=== PATIENT | female | born 1960 ===

== ENCOUNTER 2019-02-11 17:43 | Outpatient (REF) | payer BC, SELFPAY ==
[2019-02-11 22:09] LABS: TSH (W/Ref FT4) 1.03 uIU/mL (0.36-3.74)
== END 2019-02-11 18:03 ==
LOC: NCHCN 17:43
PROVIDERS: PCP Family Medicine; Visit Provider Family Medicine
DX: E66.3 Overweight (principal)
CPT/HCPCS: 84443

== ENCOUNTER 2021-02-15 16:56 | Outpatient (REF) | payer BC, SELFPAY ==
--- NOTE | 2021-02-15 16:00 | PAPFT_PTH ---
PATIENT: Josseline Nixon LOC: [facility] U#:[id number] AGE/SX: 60/F ROOM: RE02/15/[address]: Gloria Saul : 1960 BED: DIS: 02/15/2021 SPEC #: [id number] RECD: 02/16/21 12:50 STATUS: PALMA REQ #: [id number] CHARISSE: 02/15/21 16:[address]: Gloria Saul DEPT: [facility] Cytology RECD BY: Maureen Li Tissues: 1 - CX/ENDOCX FOR PAP SMEARS Procedures: PAP THIN PREP/[facility] Screening HPV DNA PROBE Comments: [id number]
== END 2021-02-15 16:57 | disposition home or self-care (01) ==
LOC: NCHCN 16:56
PROVIDERS: PCP Family Medicine; Visit Provider Family Medicine
DX: Z00.00 Encounter for general adult medical examination without abnormal findings (principal); Z12.4 Encounter for screening for malignant neoplasm of cervix; Z11.51 Encounter for screening for human papillomavirus (HPV)
CPT/HCPCS: 88142; 87624

== ENCOUNTER 2022-02-16 17:06 | Outpatient (REF) | payer BC, SELFPAY ==
[2022-02-16 15:37] LABS: ALT 25 U/L (14-59); AST 29 U/L (15-37); Albumin 3.8 g/dL (3.4-5.0); Alkaline Phosphatase 50 U/L (46-116); Bilirubin, Direct 0.1 mg/dL (0.0-0.2); Bilirubin, Total 0.5 mg/dL (0.2-1.0); Calculated LDL 117 mg/dL (<100); Cholesterol 195 mg/dL (<200); HDL Cholesterol 69 mg/dL (40-60); Total Protein 7.2 g/dL (6.4-8.2); Triglyceride 46 mg/dL (<150)
== END 2022-02-16 17:07 | disposition home or self-care (01) ==
LOC: NCHCN 17:06
PROVIDERS: PCP Family Medicine; Visit Provider Family Medicine
DX: F10.10 Alcohol abuse, uncomplicated (principal); E66.3 Overweight
CPT/HCPCS: 80061; 80076

== ENCOUNTER 2022-04-30 15:26 | Outpatient (REF) | payer BC, SELFPAY ==
[2022-05-02 11:11] LABS: Lyme Ab w Rflx to Lyme Confirm Negative (Negative)
[2022-05-04 01:04] LABS: Anaplasma phagocytophilum Negative (Negative); B. miyamotoi PCR Negative (Negative); Babesia divergens/MO-1 Negative (Negative); Babesia duncani Negative (Negative); Babesia microti Negative (Negative); Ehrlichia chaffeensis Negative (Negative); Ehrlichia ewingii/canis Negative (Negative); Ehrlichia muris eauclairensis Negative (Negative)
== END 2022-04-30 15:27 | disposition home or self-care (01) ==
LOC: NCHCN 15:26
PROVIDERS: PCP Family Medicine; Visit Provider Nurse Practitioner Family
DX: R68.84 Jaw pain (principal)
CPT/HCPCS: 87798; 86618

== ENCOUNTER 2025-05-24 15:11 | Outpatient (REF) | payer BC, SELFPAY ==
[2025-05-24 21:31] LABS: Anion Gap 7 mmol/L (3-11); BUN 19 mg/dL (9-23); CO2 30.0 mmol/L (20.0-31.0); Calcium 9.2 mg/dL (8.3-10.6); Chloride 105 mmol/L (98-107); Glucose 94 mg/dL (74-106); Hemoglobin A1C 5.3 % (<5.7); Potassium 4.2 mmol/L (3.5-5.1); Sodium 142 mmol/L (136-145)
== END 2025-05-24 15:12 | disposition home or self-care (01) ==
LOC: NCHCN 15:11
PROVIDERS: PCP Family Medicine; Visit Provider Family Medicine
DX: Z13.1 Encounter for screening for diabetes mellitus (principal)
CPT/HCPCS: 80048; 83036